=== PATIENT | male | born 1995 | race Two or more races ===

== ENCOUNTER 2021-11-22 20:30 | Emergency (ER) | payer SELFPAY ==
[~2021-11-22] VITALS: Ht 182.9 cm; Wt 86.3 kg
[2021-11-22 22:36] VITALS: BP 107/71
[2021-11-22] MEDS ORDERED: ONDANSETRON ODT 4 MG TAB PO ONE (23:00)
[2021-11-22] MEDS ORDERED: OXYCODONE W/ ACETAMINOPHEN 5/325MG TABLET PO ONE (23:00)
[2021-11-23] MEDS ORDERED: PERCOT PO (02:44)
== END 2021-11-23 03:57 | disposition home or self-care (01) ==
LOC: ER 20:30
DX: S52.101A Unspecified fracture of upper end of right radius, initial encounter for closed fracture (principal); R51.9 Headache, unspecified; M25.532 Pain in left wrist; M25.531 Pain in right wrist; V28.4XXA Motorcycle driver injured in noncollision transport accident in traffic accident, initial encounter; Y93.89 Activity, other specified; Y92.89 Other specified places as the place of occurrence of the external cause; Y99.8 Other external cause status
CPT/HCPCS: 70450; 71250; 73080; 73110; 74176; 99284; Q0162